=== PATIENT | female | born 1975 | race Caucasian/White ===

== ENCOUNTER 2023-10-26 18:38 | Inpatient (IN) | payer OTHER, SELFPAY ==
[2023-10-26 11:39] VITALS: BP 118/76
[2023-10-26 11:55] LABS: % Basophils 0.3 % (0-2); % Immature Granulocytes 0.3 % (0-0.5); % Lymphocytes 7.4 % (20.5-51.1); % Monocytes 1.4 % (1.7-9.3); % Neutrophils 90.6 % (42.2-75.2); Absolute Immature Granulocytes 0.1 10^3/uL (0-0.05); Absolute Lymphocytes 1.2 10^3/uL (1.2-3.4); Absolute Monocytes 0.2 10^3/uL (0.1-0.6); Absolute Neutrophils 14.1 10^3/uL (1.4-6.5); Hematocrit 38.6 % (37.0-47.0); Hemoglobin 13.5 g/dL (12.0-16.0); Mean Corpuscular Hgb 31.8 pg (27.0-31.0); Mean Platelet Volume 9.3 fL (7.4-10.4); Nucleated Red Blood Cells % 0 %; Platelet Count 385 10^3/uL (130-400); Red Blood Cell Count 4.24 10^6/uL (4.20-5.40); White Blood Cell Count 15.5 10^3/uL (4.8-10.8)
[2023-10-26 12:24] LABS: HCG, Serum Qualitative Screen Negative
[2023-10-26 12:28] LABS: ALT (SGPT) 18 U/L (0-35); AST (SGOT) 27 U/L (14-36); Albumin 4.5 g/dl (3.5-5.0); Alkaline Phosphatase 57 U/L (38-126); Blood Urea Nitrogen 11 mg/dl (7-17); Calcium 9.7 mg/dl (8.4-10.2); Carbon Dioxide 22 mmol/L (22-30); Chloride 106 mmol/L (98-107); Glucose 129 mg/dl (70-99); Lipase 70 U/L (23-300); Potassium 4.7 mmol/L (3.5-5.1); Sodium 136 mmol/L (135-145); Total Bilirubin 0.8 mg/dl (0.2-1.3); eGFR > 60.00
[2023-10-26 13:13] VITALS: BMI 20.8
[2023-10-26] MEDS: NSS 1000 IV ×2 (15:12→16:50)
[2023-10-26] MEDS: DILAUDID 0.5 MG IV ×2 (15:16→17:27)
[2023-10-26] MEDS: ZOFRAN 4 MG IV ×3 (15:16→23:25)
[2023-10-26 15:38] LABS: Lactic Acid 2.7 mmol/L (0.7-2.0)
[2023-10-26 15:49] LABS: INR 1.03; PT 13.3 Sec (11.4-14.6)
[2023-10-26 15:50] LABS: APTT 22.9 Sec (23.4-35.0)
--- NOTE | 2023-10-26 16:13 | ED.GENMED ---
History of Present Illness
General
Chief Complaint: Abdominal Symptoms
Source: patient
Exam Limitations: none
Time Seen by Provider: 10/26/23 14:00
Nursing documentation reviewed up to this point in time: agreed with
Travel History
Have you had any contact with someone who has COVID-19?: No
Do you have any symptoms of coronavirus? Fever > 100 degrees, chills, cough, shortness of breath, sore throat, loss of taste or smell, muscle aches, or headache?: No
History of Present Illness
History of Present Illness:
Patient is a 48-year-old female with no medical problems, remote surgery, presents with abrupt onset of nausea and vomiting at 3 am with many episodes of vomiting and some episodes of diarrhea, initially brown/stool and then changed to
bloody stool an dnow just blood
she has had mild to moderate volume dark red blood from bottom most recnetly while here waiting to be seen, in etoilet
she has lower abd pain diffusely that comes and goes in waves
she has never had a colonoscopy
'she ate a tuna sandwich yesterday at 9 pm
no oen else sick
no thiners
no active bleeding
no fever chills
pt feels very dehydrated
Phy Exam
Physical Exam
Physical Exam:
GENERAL: Alert , VERY DRY APPEARING
EYE: pupils equal and reactive
NECK: Supple
ENT: o/p clr, dry mouth.
CARDIAC: Regular rate and rhythm .
LUNGS: Clear breath sounds bilaterally, no acute respiratory distress, no wheezes/rales/rhonchi
ABDOMEN: Soft, mod lower abd tenderness, no guarding, no rebound, no cvat, normal bowel sounds
rectal: dark red in vault trace, no active bleeding, no obvious hemorrhoids
NEUROLOGICAL: Alert and oriented, no focal neuro deficits
SKIN: Warm and dry, skin intact.
MUSCULOSKELETAL: No edema, well perfused.
PSYCH: Normal and appropriate interaction.
Course
Orders/Labs/Results
Orders:
Orders
10/26/23 Lunch
NPO
Allow oral meds: Yes
Allow clear liquids: Sips of Clears
NPO with Ice Chips: Yes
10/26/23 11:43
IV Insert/Care/Rem.- Treatment PRN
Test Result ONCE
10/26/23 11:47
C-Reactive Protein Urgent
Comment: ADD ON
Complete Blood Count/With Diff Urgent
Comprehensive Metabolic Panel Urgent
HCG, Serum Qualitative Screen Urgent
Lipase Urgent
10/26/23 15:04
CT Abd/Pel (IV only)-DH only Urgent
Comment:
Reason For Exam: lower abd pain, rectal bleeding,
0.9% Sodium Chloride 1000 ml [Nss] 1,000 ml IV BOLUS
HYDROmorphone [Dilaudid] 0.5 mg IV NOW STA
Ondansetron Injectable [Zofran] 4 mg IV NOW STA
10/26/23 15:12
Lactic Acid Urgent
PTT Urgent
Prothrombin Time Urgent
10/26/23 15:38
C DIFF [C difficile Antigen & Toxins] Urgent
JOE Source: Feces/Stool
Specimen Description:
Date Specimen was Collected: 10/27/23
Time Specimen was Collected: 01:33
Norovirus by PCR Urgent
JOE Source: Feces/Stool
Specimen Description:
Date Specimen was Collected: 10/27/23
Time Specimen was Collected: 01:33
Stool Culture Urgent
JOE Source: Feces/Stool
Specimen Description:
Date Specimen was Collected: 10/27/23
Time Specimen was Collected: 01:34
10/26/23 16:21
0.9% Sodium Chloride 1000 ml [Nss] 1,000 ml IV BOLUS
10/26/23 17:19
HYDROmorphone [Dilaudid] 0.5 mg IV NOW STA
Ondansetron Injectable [Zofran] 4 mg IV NOW STA
10/26/23 17:50
Ampicillin/Sulbactam 3 G [Unasyn] 3 gm 0.9% Sodium Chloride 100 ml [Nss] 100 ml IV NOW
10/26/23 17:54
Add On- LAB Urgent
Tests Added?: crp
Calprotectin, Fecal [S] Urgent
Date Specimen was Collected: 10/27/23
Time Specimen was Collected: 01:33
10/26/23 18:12
Admit/Transfer Patient As Directed
Co-Sign Provider:
Level of Care: Inpatient admission
Assign to:: Medical/Surgical
Physician / Group: ethan/hospitalist
Diagnosis: coilitis
Reason for Hospitalization: coilitis
Expected length of stay greater than two midnights?: Yes
ELOS- Estimated Length of Stay in days: 3
I certify the patient meets the requirements for IP care: Yes
Code Status As Directed
Resuscitation Status: Full Code
Lactic Acid Urgent
10/26/23 19:30
Acetaminophen [Tylenol] 650 mg PO Q4HPRN PRN
Lactated Ringers [Lr] 1,000 ml IV 120 mls/hr
Morphine Sulfate 2 mg IV Q4HPRN PRN
Ondansetron Injectable [Zofran] 4 mg IV Q6HPRN PRN
Oxycodone [Roxicodone] 5 mg PO Q4HPRN PRN
10/26/23 19:30
GASTROINTESTINAL CONSULT Routine
Consulting Provider: Misti Ward
Was physician already notified: Yes
Reason for consult: TT by ER
Activity As Directed
Activity Level: Out of Bed-Early Mobility
Pneumatic Compression Sleeves As Directed
Type: Knee high
Vital Signs As Directed
Frequency: Per unit guidelines
DX Deep Vein Thrombosis Video Routine
10/27/23 00:00
Ampicillin/Sulbactam 3 G [Unasyn] 3 gm 0.9% Sodium Chloride 100 ml [Nss] 100 ml IV Q6H
10/27/23 07:57
Complete Blood Count/With Diff IN AM
Comprehensive Metabolic Panel IN AM
10/28/23 06:00
Complete Blood Count/With Diff IN AM
Comprehensive Metabolic Panel IN AM
Abnormal Lab Results
10/26/23 10/26/23
11:47 15:12
WBC 15.5 H 10^3/uL
(4.8-10.8)
MCH 31.8 H pg
(27.0-31.0)
Abs Immat Gran (auto) 0.1 H 10^3/uL
(0-0.05)
Absolute Neuts (auto) 14.1 H 10^3/uL
(1.4-6.5)
Neutrophils % 90.6 H %
(42.2-75.2)
Lymphocytes % 7.4 L %
(20.5-51.1)
Monocytes % 1.4 L %
(1.7-9.3)
APTT 22.9 L Sec
(23.4-35.0)
Glucose 129 H mg/dl
(70-99)
Lactic Acid 2.7 H mmol/L
(0.7-2.0)
10/26/23 11:47
10/26/23 11:47
Vital Signs
Initial and Last Documented VS:
Initial Vital Signs
Temp Pulse Resp BP Pulse Ox
97.3 F 57 22 118/76 98
10/26/23 11:39 10/26/23 11:39 10/26/23 11:39 10/26/23 11:39 10/26/23 11:39
Last Documented Vital Signs
Temp Pulse Resp BP Pulse Ox
98.1 F 63 16 120/68 99
10/27/23 07:51 10/27/23 07:51 10/27/23 07:51 10/27/23 07:51 10/27/23 07:51
MDM/Problems Addressed
Differential Diagnosis Includes:
colitis, ishcemic, infectious, hemorrhoids, gastroenteritis,
MDM/Problems Addressed:
48 y/o F with n/v/d many episodes vomiting and few episodes bloody stool since 3 am
no h/o colitis but strong fhx of colitis in her family
never had colonoscopy
stool started out brown but changed to blood
lower abd pain and chills
no rf for ischemia
tender lower abd, no rebound
stable vitals
dry mm
rectal with blood in vault, dark red
lactate 2.7, will hydrate and recheck
hg stable
mild leukocytosis
pending CT scan
will admit
10/26/2023 [address] shows severe colitis, no perforation
will start unasyn
d/w gen srugery
as well as tiger text to GI who did not respond
*Critical Care Note
Total Time (30-74mins, 75-104mins- exclusive of procedures): Not Applicable
ED Attending Note
-
Portions of this chart may have been created with voice recognition software.� Occasional wrong word or��sound alike� substitutions may have occurred due to the inherent limitations of voice recognition software.
Discharge Plan
Departure
Patient Disposition: Admit
Date of Disposition: 10/26/23
Time of Disposition: 17:30
Admit to: Med/Surg
Presentation/result/management discussed w/ accepting MD/DO: Hospitalist
Condition: Fair
Covid-19: Not Applicable
Discharge Problem:
Colitis
Interventions
Interventions:
*Risk Screen - Suicide Last Done: 10/26/23 11:40
*General Assessment Last Done: 10/26/23 11:40
*Neglect/Abuse Screening Last Done: 10/26/23 11:40
ED- Fall Risk Assessment Last Done: 10/26/23 19:02
*ED COVID-19 Vaccine History Last Done: 10/26/23 19:02
*Nursing Disposition Last Done: 10/26/23 19:02
WD-Zxipps-Uheiqulfzh Assessment Last Done: 10/26/23 13:13
Discharge Date and Time
Discharge Date/Time: 10/26/23 19:02
[2023-10-26 16:51] VITALS: BP 124/74
[2023-10-26] MEDS: UNASYN IV ×2 (18:13→23:25)
--- NOTE | 2023-10-26 18:15 | HPS.HSE ---
Addendum entered and electronically signed by Deonte Mobley MD 10/26/23 18:32:
Allergies
Allergy/AdvReac Type Severity Reaction Status Date / Time
No Known Drug Allergies Allergy none Verified 10/26/23 11:39
Home Medications
No Meds [No Current Medications] 10/26/23
Original Note:
Family Physician
-
Family Physician: * NONE
Chief Complaint
-
Abdominal pain
History of Present Illness
48-year-old female no significant past medical history is presenting with abdominal pain, nausea and vomiting and diarrhea. Patient stated last night approximately 9 PM she had a tuna sandwich for you. And woke up approximately 3 AM with severe
abdominal pain/cramps. Started having loose stools. Also with nausea vomiting. Vomitus is bilious in nature at this point. Also states of diarrhea with blood clots. States of moderate in nature of abdominal pain. States feels like cramping.
Pain is located left lower quadrant and periumbilical region. States subsequently afterwards had tea and pretzels this morning. States that she is continuously on multiple bowel movements with blood in it and thus decided come into the ER. Not on
any blood thinners. No fevers no chills. Multiple episode nausea vomiting. No prior episode of colitis. Has family history with sisters with ulcerative colitis. Patient did not have colonoscopy in the past. Denies any lightheadedness
dizziness. Denies any sick contact. No one else sick at home.
Medical History
Past Medical History
Past Medical History: Reports Other
Additional Past Medical History:
Frequent sinus infection
Past Surgical History: Reports and Orthopedic
Social History
Tobacco: Non-smoker
Alcohol: None
Living: With Family
Family History
Family History: Other (Sisters with Irritable bowel syndrome and ulcerative colitis)
Allergies / Home Medications
Allergies reflects when Allergies were last updated in [facility].
Home Medications with original date entered in [facility]
Allergy/Medication List:
Medications on admission are unable to be verified or confirmed at this time.
Review of Systems
-
History Source: Patient
A 12 point ROS was completed and negative except as noted: Yes
Physical Exam
Vital Signs
Vital Signs
Temp Pulse Resp BP Pulse Ox
97.3 F 71 14 124/74 100
10/26/23 11:39 10/26/23 16:51 10/26/23 16:51 10/26/23 16:51 10/26/23 16:51
Physical Exam
General: Well Developed, Well Nourished and No Apparent Distress
HEENT: NormoCephalic, Moist mucous membranes and Atraumatic
Respiratory: Clear
Cardiac: S1/S2 and Regular Rhythm; No Murmur or Rub
GI: Soft, Non Distended, Normal Bowel Sounds and Tender (Left lower quadrant and periumbilical region. No guarding or rigidity.); No Organomegaly
Rectal: Deferred by Provider
Musculoskeletal: No Clubbing, No Cyanosis and No Edema
Skin: No Rash
Neuro: Awake, Alert, Oriented, AO x 3, No Motor Deficits and Nonfocal/grossly intact
Psych: Calm
Laboratory Results
-
10/26/23 11:47
10/26/23 11:47
Laboratory Results
PT 13.3 Sec (11.4-14.6) 10/26/23 15:12
INR 1.03 10/26/23 15:12
APTT 22.9 Sec (23.4-35.0) L 10/26/23 15:12
Lactic Acid 2.7 mmol/L (0.7-2.0) H 10/26/23 15:12
Total Bilirubin 0.8 mg/dl (0.2-1.3) 10/26/23 11:47
AST 27 U/L (14-36) 04/27/24 11:47
ALT 18 U/L (0-35) 10/26/23 11:47
Alkaline Phosphatase 57 U/L (38-126) 10/26/23 11:47
Lipase 70 U/L (23-300) 10/26/23 11:47
Impression/Plan
-
#Acute onset of abdominal pain, nausea vomiting and diarrhea secondary to colitis likely infectious versus low likelihood of inflammatory versus ischemic
#Nausea and vomiting
#Lactic acidosis
#Severe Sepsis secondary to above
#BRBPR likely secondary to colitis
Trend lactic acid
Continue with aggressive IV fluid resuscitation with LR
N.p.o. with sips of clears
Antinausea meds as needed
Pain control
Start antibiotics with Unasyn
Stool studies ordered and pending
Avoid hypotension.
Trend WBC and fever curve
CT abdomen pelvis noted with a finding of severe left-sided colitis. No evidence of perforation or abscess. Mild diffuse bladder wall thickening.
GI has been consulted by ER
#Impaired glucose tolerance
Glucose of 129 on BMP
Check A1c in the morning
Prophylaxis SCDs.
[2023-10-26 18:38] LABS: Lactic Acid 1.3 mmol/L (0.7-2.0)
--- NOTE | 2023-10-26 19:30 | PTCARENOTE ---
PT arrived to floor from ED during change of shift. VSS, pain and nausea controlled. Pt oriented to room with call marcelo at bedside. Will review chart and follow plan of care.
[2023-10-26 19:57] VITALS: BP 127/71; BMI 20.1
[2023-10-26] MEDS: LR 1000 IV (20:15)
[2023-10-26] MEDS: ROXICODONE 5 MG PO (21:08)
[2023-10-26 23:43] VITALS: BP 104/66
[2023-10-27] MEDS: COMPAZINE 5 MG IV (01:39)
[2023-10-27] MEDS: MORPHINE SULFATE 2 MG IV (01:40)
[2023-10-27] MEDS: LR 1000 IV ×3 (01:40→17:59)
[2023-10-27 01:46] VITALS: BP 121/65
[2023-10-27] MEDS: UNASYN IV ×4 (05:47→23:19)
[2023-10-27 07:51] VITALS: BP 120/68
[2023-10-27 08:18] LABS: % Basophils 0.3 % (0-2); % Eosinophils 0.1 % (0-6); % Immature Granulocytes 0.4 % (0-0.5); % Monocytes 6.9 % (1.7-9.3); % Neutrophils 74.3 % (42.2-75.2); Absolute Basophils 0.1 10^3/uL (0-0.2); Absolute Immature Granulocytes 0.1 10^3/uL (0-0.05); Absolute Lymphocytes 3.1 10^3/uL (1.2-3.4); Absolute Monocytes 1.2 10^3/uL (0.1-0.6); Absolute Neutrophils 12.7 10^3/uL (1.4-6.5); Hematocrit 32.1 % (37.0-47.0); Hemoglobin 11.1 g/dL (12.0-16.0); Mean Corp Hgb Conc. 34.6 g/dL (33.0-37.0); Mean Corpuscular Hgb 32.5 pg (27.0-31.0); Mean Corpuscular Volume 93.9 fL (81.0-99.0); Nucleated Red Blood Cells % 0 %; Platelet Count 281 10^3/uL (130-400); Red Blood Cell Count 3.42 10^6/uL (4.20-5.40); Red Cell Dist. Width 12.3 % (11.5-14.5); White Blood Cell Count 17.1 10^3/uL (4.8-10.8)
[2023-10-27] MEDS: NSS (PRESERVATIVE FREE) 10 ML IV ×2 (08:46→20:48)
[2023-10-27] MEDS: PROTONIX IV 40 MG IV ×2 (08:46→20:48)
[2023-10-27 09:07] LABS: ALT (SGPT) 11 U/L (0-35); AST (SGOT) 20 U/L (14-36); Albumin 2.9 g/dl (3.5-5.0); Alkaline Phosphatase 42 U/L (38-126); Blood Urea Nitrogen 6 mg/dl (7-17); Carbon Dioxide 23 mmol/L (22-30); Chloride 110 mmol/L (98-107); Estimated Creatinine Clearance 106 ml/min; Glucose 89 mg/dl (70-99); Potassium 3.8 mmol/L (3.5-5.1); Sodium 134 mmol/L (135-145); Total Bilirubin 0.8 mg/dl (0.2-1.3); Total Protein 5.7 g/dl (6.3-8.2); eGFR > 60.00
[2023-10-27] MEDS: TYLENOL 650 MG PO ×3 (09:55→18:30)
[2023-10-27] MEDS: ROXICODONE 5 MG PO ×3 (09:56→18:31)
--- NOTE | 2023-10-27 10:40 | CON.GI ---
Consultation
-
Date/Time Consultation Requested: 10/26/2023
Date/Time Consultation Performed: 10/27/2023
Requesting Provider: Dr. Mobley
Performing Provider: Dr. Ward
Reason for Consultation: Bloody diarrhea
Medical History
Chief Complaint / HPI
Chief Complaint: Bloody diarrhea and abdominal cramping
History of Present Illness:
48-year-old female with no significant past medical history but strong family history of ulcerative colitis in sister presenting with acute onset lower abdominal cramping, nausea, vomiting, diarrhea which eventually turned bloody Saturday night 3
hours after having a tuna hoagie. Prior to this, patient was doing well. Around 3 AM Saturday morning patient woke up with significant lower abdominal cramping and multiple episodes of vomiting of bile, started having diarrhea which was initially
brown and then turned blood and after couple of episodes was having pure bloody bowel movements. In the ER, she was noted to have leukocytosis with a white cell count of 15.5, lactic acid of 2.7. This morning, CBC shows white cell count of 17.1,
hemoglobin dropped from 13.5-11.1. Last bowel movement was at 1 AM this morning, bloody with abdominal cramping. She was started on Ampicillin and sulbactam. Stool studies pending.
Prior to this episode, patient denies any GI complaints. Her bowel pattern is normally 1 formed stool almost on a daily basis, if she has coffee or spicy peppers, she would have looser stool but not on regular basis. Rare wipe type bleeding. No
prior abdominal pain, nausea or vomiting. No heartburn or trouble swallowing. No loss of appetite, unintentional weight loss or NSAID use. No previous similar episodes. Never had a colonoscopy.
No family history of colon cancer or polyps that she knows of but sister with ulcerative colitis and another sister also with significant GI issues that she is not sure what the diagnosis is.
No travel, no sick contacts and nobody had dinner with her Saturday night.
Past Medical History
Past Medical History: None
Past Surgical History:
Social History
Tobacco: Non-Smoker
Alcohol: Occasional
Family History
Family History: Other (Sister with ulcerative colitis, no family history of colon cancer.)
Allergies / Home Medications
Allergy/AdvReac Type Severity Reaction Status Date / Time
No Known Drug Allergies Allergy none Verified 10/26/23 11:39
�Medication �Instructions �Recorded
No Meds [No Current Medications] 10/26/23
Review of Systems
-
All other systems: A 12 pt ROS was Negative except as stated above in HPI
Vital Signs
Temp Pulse Resp BP Pulse Ox
98.1 F 63 16 120/68 99
10/27/23 07:51 10/27/23 07:51 10/27/23 07:51 10/27/23 07:51 10/27/23 07:51
Physical Exam
Exam
General: Well Developed and Well Nourished
HEENT: Normocephalic
Cardiac: S1/S2 and Regular Rhythm
GI: Soft and Other (Tenderness to the lower abdomen without any guarding or rigidity)
Skin: Warm
Neuro: AO x 3
Results
WBC 17.1 10^3/uL (4.8-10.8) H 10/27/23 07:57
Hgb 11.1 g/dL (12.0-16.0) L 10/27/23 07:57
Hct 32.1 % (37.0-47.0) L 10/27/23 07:57
MCV 93.9 fL (81.0-99.0) 10/27/23 07:57
Plt Count 281 10^3/uL (130-400) D 10/27/23 07:57
Absolute Neuts (auto) 12.7 10^3/uL (1.4-6.5) H 10/27/23 07:57
PT 13.3 Sec (11.4-14.6) 10/26/23 15:12
INR 1.03 10/26/23 15:12
APTT 22.9 Sec (23.4-35.0) L 10/26/23 15:12
Sodium 134 mmol/L (135-145) L 10/27/23 07:57
Potassium 3.8 mmol/L (3.5-5.1) 10/27/23 07:57
Chloride 110 mmol/L (98-107) H 10/27/23 07:57
Carbon Dioxide 23 mmol/L (22-30) 10/27/23 07:57
BUN 6 mg/dl (7-17) L 10/27/23 07:57
Creatinine 0.6 mg/dL (0.6-1.0) 10/27/23 07:57
Calcium 8.0 mg/dl (8.4-10.2) L D 10/27/23 07:57
Total Bilirubin 0.8 mg/dl (0.2-1.3) 10/27/23 07:57
AST 20 U/L (14-36) 10/27/23 07:57
ALT 11 U/L (0-35) 10/27/23 07:57
Alkaline Phosphatase 42 U/L (38-126) 10/27/23 07:57
Lipase 70 U/L (23-300) 10/26/23 11:47
Diagnostic Image Results:
Prior GI Procedures:
EGD:
Colonoscopy:
Assessment / Plan
-
48-year-old female with no significant past medical history presenting with sudden onset lower abdominal cramping, nausea and vomiting and bloody diarrhea after eating tuna hoagie Rohan night. No previous similar episodes. No prior GI complaints.
Never had a colonoscopy. Sister with history of ulcerative colitis. Leukocytosis noted in the ER.
-Abdominal cramping with bloody diarrhea and vomiting
Rule out infectious colitis/less likely ischemic, cannot rule out inflammatory bowel disease though not typical presentation for that.
Stool studies including C. difficile, cultures and white cells pending. Okay for clear liquid diet. IV hydration.
Monitor electrolytes and replete.
If stool studies negative for infection and if symptoms continue, will do flexible sigmoidoscopy as an inpatient.
If symptoms improve, she will need outpatient colonoscopy 6 to 8 weeks after this episode resolves.
Will follow-up
-
-
Thank you for consultation and allowing me to participate in the patient's care. Please call the client care consultant GI physician during the after hours with any questions or concerns.
--- NOTE | 2023-10-27 11:54 | W.PN.HOSP.TC ---
Today's Communication/Plan
-
Diet per GI
Continue with IV fluid
Await stool studies
Assessment / Plan
Assessment / Plan
#Acute onset of abdominal pain, nausea vomiting and diarrhea secondary to colitis likely infectious versus low likelihood of inflammatory versus ischemic
#Nausea and vomiting
#Lactic acidosis
#Severe Sepsis secondary to above
#BRBPR likely secondary to colitis
Trend lactic acid
Continue with aggressive IV fluid resuscitation with LR
clears for now.
Antinausea meds as needed
Pain control
Start antibiotics with Unasyn
Open WBC noted. Afebrile.
Stool studies ordered and pending
Avoid hypotension.
C. difficile and norovirus negative
Trend WBC and fever curve
Lactic acidosis resolved with IV fluid.
Hemoglobin stable so far. May require inpatient flex sig if no improvement.
CT abdomen pelvis noted with a finding of severe left-sided colitis. No evidence of perforation or abscess. Mild diffuse bladder wall thickening.
GI has been consulted by ER
#Impaired glucose tolerance
Glucose of 129 on BMP
Check A1c in the morning
DVT prophylaxis SCDs.
Anticipated Discharge: > 48 hours
Subjective/Interval History
-
Date of Service: October 27, 2023
States of bright red blood per the rectum
States of intermittent abdominal cramps
Objective Data
-
Labs:
Laboratory Results
10/27/23 10/27/23
02:25 07:57
WBC 17.1 H
Hgb Pending 11.1 L
Hct Pending 32.1 L
Plt Count 281 D
Sodium 134 L
Potassium 3.8
Chloride 110 H
Carbon Dioxide 23
BUN 6 L
Creatinine 0.6
Glucose 89
Calcium 8.0 L D
Total Bilirubin 0.8
AST 20
ALT 11
Alkaline Phosphatase 42
Vital Signs:
Vital Signs
Temp Pulse Resp BP Pulse Ox
98.1 F 63 16 120/68 99
10/27/23 07:51 10/27/23 07:51 10/27/23 07:51 10/27/23 07:51 10/27/23 07:51
I&O
10/26/23 10/27/23 10/28/23
06:59 06:59 06:59
Intake Total 1550 / 1550
Output Total
Balance 1520 / 1520
Physical Exam
-
General: Well Developed and No Apparent Distress
HEENT: Normocephalic, Atraumatic and Moist Mucous Membranes
Respiratory: Clear to Auscultation
Cardiac: Regular Rhythm and S1/S2; Negative Murmur, Rub or Gallop
GI: Soft, Nondistended, Normal Bowel Sounds and Tender (Left lower quadrant and periumbilical); Negative Organomegaly
Rectal: Deferred by Provider
Musculoskeletal: No Clubbing, No Cyanosis and No Edema
Skin: Negative Rash
Neuro: Awake, AO x 3, No Motor Deficits and Nonfocal/Grossly Intact
Psych: Calm
[2023-10-27 15:14] VITALS: BP 93/63
--- NOTE | 2023-10-27 15:58 | CM ---
Addendum entered by Jhoana Wood 10/27/23 16:06:
Family Physician: Jessica Salguero
No particular PCP
[address], [address]
[place] [address]
phone [phone]
Original Note:
Met with patient at bedside; initial assessment completed
Pharmacy verified: [facility]
Patient lives with her 10 yr old daughter in a townhouse; 3 steps to enter; 14 steps between floors; powder room on the 1st floor; 2nd floor bath has stall shower
Reported that her daughter's father lives nearby and is available to assist if needed
PLOF: independent with ADLs, ambulation, and stairs; drives; works retail coverage merchandiser lead
DME: none
Transportation: family will provide ride home
SNF/Rehab/Home Health utilization history: none
Plan: discharge to home; will monitor for discharge needs
[2023-10-27 23:22] VITALS: BP 108/67
[2023-10-28] MEDS: ROXICODONE 5 MG PO (00:24)
[2023-10-28] MEDS: TYLENOL 650 MG PO ×2 (00:24→08:06)
[2023-10-28] MEDS: LR 1000 IV ×4 (02:20→21:22)
[2023-10-28] MEDS: UNASYN IV ×3 (05:28→17:41)
[2023-10-28 06:19] LABS: % Basophils 0.4 % (0-2); % Eosinophils 1.6 % (0-6); % Immature Granulocytes 0.3 % (0-0.5); % Lymphocytes 28.6 % (20.5-51.1); % Monocytes 6.9 % (1.7-9.3); % Neutrophils 62.2 % (42.2-75.2); Absolute Basophils 0.1 10^3/uL (0-0.2); Absolute Eosinophils 0.2 10^3/uL (0-0.7); Absolute Lymphocytes 3.4 10^3/uL (1.2-3.4); Absolute Monocytes 0.8 10^3/uL (0.1-0.6); Absolute Neutrophils 7.3 10^3/uL (1.4-6.5); Hemoglobin 11.1 g/dL (12.0-16.0); Mean Corp Hgb Conc. 33.6 g/dL (33.0-37.0); Mean Corpuscular Hgb 31.8 pg (27.0-31.0); Mean Corpuscular Volume 94.6 fL (81.0-99.0); Mean Platelet Volume 9.8 fL (7.4-10.4); Nucleated Red Blood Cells % 0 %; Platelet Count 252 10^3/uL (130-400); Red Blood Cell Count 3.49 10^6/uL (4.20-5.40); Red Cell Dist. Width 12.3 % (11.5-14.5); White Blood Cell Count 11.8 10^3/uL (4.8-10.8)
[2023-10-28 06:39] LABS: ALT (SGPT) < 10 U/L (0-35); AST (SGOT) 21 U/L (14-36); Albumin 2.8 g/dl (3.5-5.0); Alkaline Phosphatase 44 U/L (38-126); Blood Urea Nitrogen 4 mg/dl (7-17); Calcium 8.1 mg/dl (8.4-10.2); Carbon Dioxide 27 mmol/L (22-30); Chloride 105 mmol/L (98-107); Estimated Creatinine Clearance 106 ml/min; Glucose 89 mg/dl (70-99); Potassium 3.7 mmol/L (3.5-5.1); Sodium 135 mmol/L (135-145); Total Bilirubin 0.6 mg/dl (0.2-1.3); Total Protein 5.6 g/dl (6.3-8.2); eGFR > 60.00
[2023-10-28 07:00] VITALS: BP 115/74
[2023-10-28] MEDS: PROTONIX IV 40 MG IV ×2 (08:05→22:37)
[2023-10-28] MEDS: NSS (PRESERVATIVE FREE) 10 ML IV ×2 (08:06→22:37)
[2023-10-28] MEDS: MORPHINE SULFATE 2 MG IV ×3 (08:06→22:36)
--- NOTE | 2023-10-28 08:43 | W.PN.HOSP.TC ---
Today's Communication/Plan
-
trend CBC
await GI input
Assessment / Plan
Assessment / Plan
#Acute onset of abdominal pain, nausea vomiting and diarrhea secondary to colitis likely infectious versus low likelihood of inflammatory versus ischemic
WBC 15.5-->17.1-->11.8k
Pt states she has tuna fish ~10PM prior to onset of symptoms, with symptoms starting ~3AM following day. Tuna was bought at a local for; to (do) establishment
#Nausea and vomiting
#Lactic acidosis
2.7-->1.3
#Severe Sepsis secondary to above
#BRBPR likely secondary to colitis
#acute migraine flare
she states she normally uses Excedrin migraine, but would be wary to use during acute process. Tylenol and Morphine ordered prn
Continue with aggressive IV fluid resuscitation with LR
clears for now.
Antinausea meds as needed
Pain control
Start antibiotics with Unasyn
WBC noted. Afebrile.
Stool studies ordered and pending
Avoid hypotension.
C. difficile and norovirus negative
Hemoglobin stable so far. May require inpatient flex sig if no improvement.
CT abdomen pelvis noted with a finding of severe left-sided colitis. No evidence of perforation or abscess. Mild diffuse bladder wall thickening.
GI has been consulted by ER
#Impaired glucose tolerance
Glucose of 129 on BMP
Check A1c pending
DVT prophylaxis SCDs.
Anticipated Discharge: 24 - 48 hours
Subjective/Interval History
-
Date of Service: October 28, 2023
Bloody BM, last one yesterday, none yet today
Min complaint is migraine flare
Objective Data
-
Labs:
Laboratory Results
10/28/23
05:54
WBC 11.8 H
Hgb 11.1 L
Hct 33.0 L
Plt Count 252
Sodium 135
Potassium 3.7
Chloride 105
Carbon Dioxide 27
BUN 4 L
Creatinine 0.6
Glucose 89
Calcium 8.1 L
Total Bilirubin 0.6
AST 21
ALT < 10
Alkaline Phosphatase 44
Vital Signs:
Vital Signs
Temp Pulse Resp BP Pulse Ox
97.5 F 72 16 115/74 98
10/28/23 07:00 10/28/23 07:00 10/28/23 07:00 10/28/23 07:00 10/28/23 07:00
I&O
10/27/23 10/28/23 10/29/23
06:59 06:59 06:59
Intake Total 1550 / 1550 840 / 840
Output Total
Balance 1520 / 1520 840 / 840
Review of Systems
-
History Source: Patient and Coordinated Provider
Constitutional: Denies Fever
EENT: Reports No Symptoms Reported and Eye Pain (rt retro-orbital from migraine)
Respiratory: Reports No Symptoms
Cardiac: Reports No Symptoms
Abdomen/GI: Reports Abdominal Pain (intermittent) and Bloody Stools (last episode yesterday); Denies Nausea or Vomiting
Genitourinary: Reports No Symptoms
Neuro: Reports Headache (migraine flare)
Physical Exam
-
General: Well Developed and No Apparent Distress
HEENT: Normocephalic, Atraumatic and Moist Mucous Membranes
Respiratory: Clear to Auscultation
Cardiac: Regular Rhythm and S1/S2; Negative Murmur, Rub or Gallop
GI: Soft, Nondistended, Normal Bowel Sounds and Tender (Left lower quadrant and periumbilical); Negative Organomegaly
Rectal: Deferred by Provider
Musculoskeletal: No Clubbing, No Cyanosis and No Edema
Skin: Negative Rash
Neuro: Awake, AO x 3, No Motor Deficits and Nonfocal/Grossly Intact
Psych: Calm
[2023-10-28 09:30] LABS: Glycohemoglobin (HgbA1c) 5.5 % (4.0-5.6)
--- NOTE | 2023-10-28 11:42 | W.PN.GI.CBS2 ---
Addendum entered and electronically signed by Misti Ward MD 10/28/23 18:17:
I saw and examined the patient.
The [employer] or PA's note was reviewed and I agree with the note.
Comment: No further bloody bowel movements. Still intermittent cramping in the lower abdomen, no fevers or chills.
Hemoglobin seems to be stable and leukocytosis resolving.
Stool studies so far negative
Likely infectious gastroenteritis, less likely ischemic
On clear liquid diet, advance as tolerated.
Outpatient colonoscopy in 6 to 8 weeks.
Original Note:
Today's Communication / Plan
-
etiology of abdominal pain with blood stool and vomiting related to infectious process vs other
no further stools or bleeding today but still with pain
WBC's improving
c-diff, norovirus neg other cx pending add giardia and crypto
cont clear diet if improved later today consider advance
OP follow up 3-4 weeks and consider colonoscopy in 6- 8 weeks
migraine management per hospitalist
Assessment / Plan
-
48-year-old female with no significant past medical history presenting with sudden onset lower abdominal cramping, nausea and vomiting and bloody diarrhea after eating tuna hoagie Saturday night. No previous similar episodes. No prior GI complaints.
Never had a colonoscopy. Sister with history of ulcerative colitis. Leukocytosis noted in the ER.
10/25 CT IV only Findings suggesting severe left-sided colitis as described above. No evidence of perforation or abscess formation. Moderate diffuse bladder wall thickening. This may be partially due to limited distention. Cystitis and bladder
outlet obstruction not excluded.
left sided colitis
bladder wall thickening with limited distention
migraines
PLAN:
etiology of abdominal pain with blood stool and vomiting related to infectious process vs other
no further stools or bleeding today but still with pain
WBC's improving
c-diff, norovirus neg other cx pending add giardia and crypto
cont clear diet if improved later today consider advance
OP follow up 3-4 weeks and consider colonoscopy in 6- 8 weeks
migraine management per hospitalist
Subjective
Subjective
Date of Service: October 28, 2023
bright red and burgundy stool last around noon yesterday on clear diet still with some pain more localized to mid abdomen and now migraines
Objective
Data Reviewed
Laboratory Data:
Laboratory Results
10/28/23 05:54
10/28/23 05:54
Laboratory Results
PT 13.3 Sec (11.4-14.6) 10/26/23 15:12
INR 1.03 10/26/23 15:12
APTT 22.9 Sec (23.4-35.0) L 10/26/23 15:12
Total Bilirubin 0.6 mg/dl (0.2-1.3) 10/28/23 05:54
AST 21 U/L (14-36) 10/28/23 05:54
ALT < 10 U/L (0-35) 10/28/23 05:54
Alkaline Phosphatase 44 U/L (38-126) 10/28/23 05:54
Lipase 70 U/L (23-300) 10/26/23 11:47
Vital Signs and I&O:
Vital Signs
Temp Pulse Resp BP Pulse Ox
97.5 F 72 16 115/74 98
10/28/23 07:00 10/28/23 07:00 10/28/23 07:00 10/28/23 07:00 10/28/23 07:00
I&O
10/27/23 10/28/23 10/29/23
06:59 06:59 06:59
Intake Total 1550 / 1550 840 / 840
Output Total
Balance 1520 / 1520 840 / 840
Physical Exam
Physical Exam
HEENT: Anicteric and Moist mucous membranes
Cardiology: Normal Sinus Rhythm
Pulmonary: Clear
GI: Soft, Non Distended and Tender (mid lower abdomen )
Extremities: No Edema
Neuro: Non Focal
[2023-10-28 15:00] VITALS: BP 110/64
[2023-10-28] MEDS: FLUSH (NSS) 2 FLUSH IV (22:38)
[2023-10-28 23:15] VITALS: BP 118/67
[2023-10-29] MEDS: UNASYN IV ×3 (00:53→11:54)
[2023-10-29] MEDS: FLUSH (NSS) 2 FLUSH IV ×2 (00:57→06:31)
[2023-10-29] MEDS: LR 1000 IV (06:29)
--- NOTE | 2023-10-29 07:12 | W.PN.GI.CBS2 ---
Today's Communication / Plan
-
See assessment and plan for details.
Assessment / Plan
-
1. Colitis: Likely infectious, overall improved, with improved symptoms and exam, stool studies negative so far. At this point she tolerates diet is okay to DC from GI standpoint without antibiotics, slowly advance diet and continue supportive
care. Will plan colonoscopy in 6 to 8 weeks.
Subjective
Subjective
Date of Service: October 29, 2023
Patient feeling better overall, still some mild cramps, though improved, no fever or chills, tolerates mashed potato without difficulty, no bowel movements overnight.
Objective
Data Reviewed
Laboratory Data:
Laboratory Results
10/28/23 05:54
Laboratory Results
PT 13.3 Sec (11.4-14.6) 10/26/23 15:12
INR 1.03 10/26/23 15:12
APTT 22.9 Sec (23.4-35.0) L 10/26/23 15:12
Total Bilirubin 0.6 mg/dl (0.2-1.3) 10/28/23 05:54
AST 21 U/L (14-36) 10/28/23 05:54
ALT < 10 U/L (0-35) 10/28/23 05:54
Alkaline Phosphatase 44 U/L (38-126) 10/28/23 05:54
Lipase 70 U/L (23-300) 10/26/23 11:47
Vital Signs and I&O:
Vital Signs
Temp Pulse Resp BP Pulse Ox
98.3 F 75 18 118/67 97
10/28/23 23:15 10/28/23 23:15 10/28/23 23:15 10/28/23 23:15 10/29/23 05:31
I&O
10/28/23 10/29/23 10/30/23
06:59 06:59 06:59
Intake Total 840 / 840 2280 / 2280
Balance 840 / 840 0 / 2279
Physical Exam
Physical Exam
General: NAD
Abdomen: normal bowel sounds, soft, minimal left-sided tenderness, no masses or bruits, no ascites
[2023-10-29 07:25] LABS: % Basophils 0.5 % (0-2); % Eosinophils 3.5 % (0-6); % Immature Granulocytes 0.4 % (0-0.5); % Monocytes 7.6 % (1.7-9.3); Absolute Basophils 0.1 10^3/uL (0-0.2); Absolute Eosinophils 0.3 10^3/uL (0-0.7); Absolute Lymphocytes 3.5 10^3/uL (1.2-3.4); Absolute Monocytes 0.8 10^3/uL (0.1-0.6); Absolute Neutrophils 5.1 10^3/uL (1.4-6.5); Hemoglobin 11.2 g/dL (12.0-16.0); Mean Corpuscular Hgb 32.6 pg (27.0-31.0); Mean Platelet Volume 10.2 fL (7.4-10.4); Nucleated Red Blood Cells % 0 %; Platelet Count 286 10^3/uL (130-400); Red Blood Cell Count 3.44 10^6/uL (4.20-5.40); Red Cell Dist. Width 12.3 % (11.5-14.5); White Blood Cell Count 9.8 10^3/uL (4.8-10.8)
[2023-10-29] MEDS: PROTONIX IV 40 MG IV (07:48)
[2023-10-29] MEDS: NSS (PRESERVATIVE FREE) 10 ML IV (07:49)
[2023-10-29 08:00] VITALS: BP 97/65
--- NOTE | 2023-10-29 10:48 | W.PN.HOSP.TC ---
Addendum entered and electronically signed by Demetrius Dixon MD 10/29/23 11:12:
correction, pt did not have severe sepsis, did not make criteria
Original Note:
Today's Communication/Plan
-
dc now
Assessment / Plan
Assessment / Plan
#Acute onset of abdominal pain, nausea vomiting and diarrhea secondary to colitis likely infectious versus low likelihood of inflammatory versus ischemic
WBC 15.5-->17.1-->11.8-->9.8k
Pt states she has tuna fish ~10PM prior to onset of symptoms, with symptoms starting ~3AM following day. Tuna was bought at a local [employer] establishment
#Nausea and vomiting resolved
#Lactic acidosis
2.7-->1.3
#Severe Sepsis secondary to above
#BRBPR likely secondary to colitis
Pt cleared by GI for dc
#acute migraine flare
she states she normally uses Excedrin migraine, but would be wary to use during acute process. Tylenol and Morphine ordered prn
Continue with aggressive IV fluid resuscitation with LR
Tolerated diet
nausea fully resolved
Pain significantly better
Transition antibiotics to oral
Afebrile.
Stool studies ordered and neg to date
Avoid hypotension.
C. difficile and norovirus negative
Hemoglobin stable
CT abdomen pelvis noted with a finding of severe left-sided colitis. No evidence of perforation or abscess. Mild diffuse bladder wall thickening.
GI has been consulted input appreciated
#Impaired glucose tolerance
Glucose of 129 on BMP
A1c 5.5%
DVT prophylaxis SCDs.
dc to home
see dictated note
More than 30 minutes spent in discharge including
Final examination of the patient
Summarizing hospital stay
Instructions for continuing care to all relevant caregivers
Preparation of discharge records, prescriptions, and referral forms
Total time spent (in minutes): 50
Anticipated Discharge: Today
Subjective/Interval History
-
Date of Service: October 29, 2023
Feeling markedly better
Had bloody diarrhea last evening, none today
Objective Data
-
Labs:
Laboratory Results
10/29/23
06:43
WBC 9.8
Hgb 11.2 L
Hct 32.0 L
Plt Count 286
Vital Signs:
Vital Signs
Temp Pulse Resp BP Pulse Ox
98.2 F 81 16 97/65 99
10/29/23 08:00 10/29/23 08:00 10/29/23 08:00 10/29/23 08:00 10/29/23 08:00
I&O
10/28/23 10/29/23 10/30/23
06:59 06:59 06:59
Intake Total 840 / 840 2280 / 2280
Balance 840 / 840 2280 / 2280
Review of Systems
-
History Source: Patient and Coordinated Provider
Constitutional: Denies Fever
EENT: Reports No Symptoms Reported and Eye Pain (resolved)
Respiratory: Reports No Symptoms
Cardiac: Reports No Symptoms
Abdomen/GI: Reports Abdominal Pain (much improved) and Bloody Stools (last episode yesterday); Denies Nausea or Vomiting
Genitourinary: Reports No Symptoms
Neuro: Reports Headache (migraine flare, markedly reduced)
Physical Exam
-
General: Well Developed and No Apparent Distress
HEENT: Normocephalic, Atraumatic and Moist Mucous Membranes
Respiratory: Clear to Auscultation
Cardiac: Regular Rhythm and S1/S2; Negative Murmur, Rub or Gallop
GI: Soft, Nondistended, Normal Bowel Sounds and Tender (Left lower quadrant and periumbilical); Negative Organomegaly
Rectal: Deferred by Provider
Musculoskeletal: No Clubbing, No Cyanosis and No Edema
Skin: Negative Rash
Neuro: Awake, AO x 3, No Motor Deficits and Nonfocal/Grossly Intact
Psych: Calm
--- NOTE | 2023-10-29 11:03 | W.DS.TRANS ---
DC Summary - [employer]
-
Discharge Instructions:
Discharge Diagnosis/Procedures Infectious colitis
Diet Regular
Additional Diets easy to digest
Activity No restrictions
Driving Restrictions As prior to admission
Bathing Restrictions None
Blood Work CBC, CMP in 1-2 weeks
Instructions:
Stand-Alone Forms:
Changes to Home Medications: Yes
Discharge Medications:
DC Medications w/original date entered in [employer]
amoxicillin 875 mg-potassium clavulanate 125 mg tablet 1 tab PO Q12H #14 tabs 10/29/23
Home Medication Changes
Augmentin for 7 days
Pending Results: No
[2023-10-29 12:00] VITALS: BP 102/71
[2023-10-30 20:06] LABS: Calprotectin, Fecal >3000 ug/g (<=49)
== END 2023-10-29 13:36 | disposition home or self-care (01) | DRG 392 ==
LOC: 3 WEST ACU 18:38
PROVIDERS: Physician Assistant; ADMITTING PHYSICIAN Hospitalist; ATTENDING PHYSICIAN Internal Medicine; CONSULT PHYSICIAN Internal Medicine Gastroenterology; EMERGENCY PHYSICIAN Emergency Medicine
DX: A09 Infectious gastroenteritis and colitis, unspecified (principal); E87.20 Acidosis, unspecified; K51.50 Left sided colitis without complications; K62.5 Hemorrhage of anus and rectum; G43.909 Migraine, unspecified, not intractable, without status migrainosus
CPT/HCPCS: 74177; 80053; 83036; 83605; 83690; 83993; 84703; 85025; 85610; 85730; 86140; 87045; 87046; 87324; 87328; 87329; 87427; 87449; 87798; 96361; 96365; 96375; 96376; 99285; Q9967